=== PATIENT | female | born 1945 | race Caucasian/White ===

== ENCOUNTER → 2016-10-18 13:50 | Outpatient (CLI) | payer MEDICARE, BC ==
[2016-03-11 12:08] VITALS: BMI 26.1
[~2016-10-18 13:50] MED LIST: CITRACAL + D CA1 TAB PO; PROVENTIL/2.5 MG/3 M INH; VITAMIN D31000 UNIT PO; ZOCOR20 MG PO
== END | disposition home or self-care (01) ==
LOC: D.CT 13:50
DX: K63.5 Polyp of colon (principal)

== ENCOUNTER 2017-01-19 08:38 | Day surgery (SDC) | payer MEDICARE, BC ==
[~2017-01-19] VITALS: Ht 147.3 cm; Wt 56.4 kg
--- NOTE | ~2017-01-19 | HP ---
PATIENT: CATA GAMBINO MEDICAL RECORD: [id number] ACCOUNT: [id number] LOCATION:D.MS Fletcher : 49 ADMISSION DATE: 01/19/17 HISTORY AND PHYSICAL EXAMINATION PREOPERATIVE DIAGNOSIS: Numerous colon polyps. HISTORY OF PRESENT ILLNESS: The patient has a tattooed colon polyp in the ascending colon, which is a 45-cm polyp. There is also another polyp at 60 cm, which was a 2 cm polyp. Also, at 20 cm is a 2 cm polyp and also a rectal nodule. I am going to plan for a colonoscopy with argon plasma comic artist. The risks, possible complications and alternatives to the procedure were explained to the patient. She elects to proceed. Discussion specifically included, but was not limited to, bleeding requiring emergency reoperation, infection, endoscopic perforation, as well as the possible need for an open procedure or a colon resection sometime in the future. ALLERGIES: FENTANYL, SULFA, OMNICEF, SPIRIVA. HOME MEDICATIONS: Albuterol, Carafate, Pepcid, and vitamin D3. PAST MEDICAL AND SURGICAL HISTORY: Vertebroplasty, gastroesophageal reflux, osteoporosis, diverticulosis, and COPD. SOCIAL HISTORY: She is a smoker. I have advised her to quit smoking. PHYSICAL EXAMINATION: GENERAL: The patient does not appear acutely ill. She does appear chronically ill. VITAL SIGNS: Reviewed. HEAD: External ears appear normal. EYES: Extraocular movements are intact. NECK: Trachea is midline. CHEST: No intercostal retractions. PULMONARY: Nonlabored, no stridor. ABDOMEN: Nontender. EXTREMITIES: No peripheral cyanosis. IMPRESSION: Complex colon polyps due to their size and location. PLAN: Colonoscopy, polypectomy with the argon plasma comic artist. TRANSINT:[id number] Voice Confirmation ID: [id number] DOCUMENT ID: [id number] HISTORY AND PHYSICAL [id number] CATA GAMBINO ADRIEN MANSFIELD MD CC: BRIAN WALDRON DO, CATY CUELLAR MD and JERRY EDGE [id number] DICTATION DATE: 01/19/171734 POWER GENERATION EQUIPMENT REPAIRER: 01/19/[id number] [place] [address]
--- NOTE | ~2017-01-19 | OP ---
PATIENT NAME: CATA GAMBINO MEDICAL RECORD: [id number] :49 LOCATION:D.MS [id number] ADMISSION DATE: SURGEON: ADRIEN MANSFIELD MD DATE OF OPERATION: 01/19/2017 PREOPERATIVE DIAGNOSIS: Multiple complex colon polyps. POSTOPERATIVE DIAGNOSES: Multiple complex colon polyps with inability to advance the colonoscope proximal to the proximal sigmoid colon. There was a polyp at 20 cm, which was a pedunculated polyp, which was removed utilizing a snare polypectomy technique and then tattooed. PROCEDURES: 1. Flexible sigmoidoscopy. 2. Snare polypectomy. 3. Endoscopic tattooing of the submucosa at the site of the polypectomy. 4. Argon plasma coagulation therapy to the base of the polyp. SURGEON: Adrien Mansfield MD. BUSINESS LINE MANAGER: None. BLOOD LOSS: Minimal. ANESTHESIA: General. COMPLICATIONS: None. The risks, possible complication and alternatives to procedure were explained to the patient. She elects to proceed. The discussion specifically included, but was not limited to, bleeding requiring emergency reoperation, infection, endoscopic perforation. OPERATIVE COURSE: The patient was conveyed to the operating room electively on 01/19/2017. General anesthesia was induced by the anesthesia staff. The patient was placed in the Heredia position. During the procedure, we rolled the patient from side to side also placed her supine in frogleg position in order to try to advance the endoscope. I advanced the colonoscope through the anus. I was unable to advance it proximal to the proximal sigmoid colon. I felt that further attempts may cause an iatrogenic perforation. I withdrew the endoscope to 20 cm. The pedunculated polyp was noted. This was a 2.0 cm polyp. Snare polypectomy was performed utilizing the coagulation and then the cut setting. I then suctioned the polyp and withdrew it through the anus. I then readvanced the endoscope. I advanced it to the polypectomy site. There was some residual polypoid tissue at the base and this was ablated utilizing the argon plasma account solutions analyst with the right colon setting in the forced mode. In order to identify this distal polypectomy site, I performed a submucosal injection of Farrah ink as tattooing this area. This will allow me to know where the distal polypectomy site is. The patient is going to require a segmental colectomy. The colonoscope was removed after the retroflexed view was obtained in the rectum. I then unretroflexed the scope and removed it under direct vision. OPERATIVE REPORT [id number] CATA GAMBINO The patient was conveyed to the recovery room. It was going to be necessary to perform a segmental colectomy on this patient. I will try to do this laparoscopically if I can. I will see her in the office in 2-3 weeks, and we will discuss a colectomy at that time. TRANSINT:[id number] Voice Confirmation ID: [id number] DOCUMENT ID: [id number] ADRIEN MANSFIELD MD CC: BRIAN WALDRON DO, CATY CUELLAR MD and JERRY EDGE [id number] DICTATION DATE: 01/19/17 174 COLORING ROOM WORKER: 01/20/17 0221 [facility] [address] [place] [address]
[2017-01-19] MEDS ORDERED: CARAFATE1 G PO (09:33)
[2017-01-19] MEDS ORDERED: PEPCID20 MG PO (09:33)
[2017-01-19 09:36] VITALS: BP 117/73; BMI 25.1
[2017-01-19 09:45] LABS: HEMATOCRIT 46.6 % (36.0-48.0); HEMOGLOBIN 15.6 g/dL (12-16); MCH 31.8 pg (26.0-34.0); MCHC 33.5 g/dL (31.0-37.0); MCV 94.9 fL (80.0-100.0); MEAN PLATELET VOLUME 11.5 fL (7.4-10.4); RBC 4.91 10x6/uL (4.00-5.40); RDW 13.1 % (11.5-14.5); WBC 5.2 10x3/uL (4.8-10.8)
--- NOTE | 2017-01-19 18:31 | NUR ---
181 REPORT FROM JUAN CARLOS VYAS R.N. PATIENT RESTING WITH EYES CLOSED. AMBULATED IN THE HALLS HYPOACTIVE BOWEL SOUNDS. RESP EVEN AND NOLABORED. ENCOURAGE TO PASS AIR.
--- NOTE | 2017-01-19 19:14 | NUR ---
1540--PT COMPLAINS OF CRAMPS TO ABDOMEN, INSTRUCTED PT TO LAY ON LEFT SIDE WITH KNEES BENT TO CHEST TO HELP EXPEL AIR. WILL CONTINUE TO MONITOR. LEANNA HURT 1700--PT RESTING WITH EYES CLOSED, AWAKENS TO VERBAL STIMULI. PT DENIES PASSING AIR, PT UP TO BATHROOM. LEANNA HURT 1715--PT UNABLE TO PASS AIR WHILE UP TO THE BATHROOM, PT TO BED ON RIGHT SIDE. LEANNA HURT 3585--DR MANSFIELD CALLED AND REPORT OF PT'S DISCOMFORT AND INABILITY TO PASS AIR GIVEN PER SONYA PATE RN, NEW ORDER RECIEVED. LEANNA HURT 199--SIMETHICONE CHEWABLE TABLET GIVEN. LEANNA HURT
--- NOTE | 2017-01-19 19:24 | NUR ---
1899 STILL HAVING ABDOMINAL PAIN 7 LOWER ABDOMEN. NO NAUSEA CALLED DR. MANSFIELD FOR ORDERS AND REPORTED V/DS STABLE AND WALKED PATIENT IN HALLS AND STILL NOT PASSING AIR DID ALICIA. ORDERS RECEIVED.
--- NOTE | 2017-01-19 19:25 | NUR ---
1910 REPORTED TO PATIENT AND FAMILY WILL KEEP OVERNIGHT AND OBSERVE AND HAVE KUB IN THE AM. OFFERED PAIN MEDS BUT REFUSED. TAKING IN LEMON RUBY AND BELCHING.
--- NOTE | 2017-01-19 19:29 | NUR ---
192 OFFERED PAIN MED DENIED NEED FOR PILL FELL THAT THE DILAUDID MADE HER FEEL DIZZY.TOLD PATIENT AND FAMILY WAITING FOR A BED ASSIGNMENT.
--- NOTE | 2017-01-19 19:46 | NUR ---
1945 REPORT TO MAYTE PERALTA LPN. PATIENT TAKING IN LIQUIDS AND STILL NOT PASSING AIR.
[2017-01-19 20:00] VITALS: BP 107/59
[2017-01-19 20:28] VITALS: BP 107/59; Ht 147.3 cm; Wt 56.4 kg
--- NOTE | 2017-01-19 23:08 | NUR ---
REC'D PATIENT FROM OUTPATIENT SURGERY. ALERT AND ORIENTED X4. REPORTS PAIN OF 7/10. DENIED PAIN MEDICATION. STATES "I WANT TO SEE IF I CAN GET RID OF SOME OF THE AIR IN MY STOMACH" NO DISTRESS NOTED. DENIES FURTHER NEEDS AT THIS TIME. INSTRUCTED TO CALL IF NEEDS ANYTHING. BED LOW, LOCKED, CALL LIGHT IN REACH.
[2017-01-20] VITALS: BP 104/67; BP 119/84
--- NOTE | 2017-01-20 01:47 | NUR ---
PATIENT IS RESTING IN BED COMFORTABLY. NO DISTRESS NOTED. DENIED PAIN AT THIS TIME. DENIED FURTHER NEEDS AT THIS TIME. INSTRUCTED TO CALL IF NEEDED ANYTHING. BED LOW, LOCKED, CALL LIGHT IN REACH.
[2017-01-20 04:00] VITALS: BP 86/57
[2017-01-20 08:09] VITALS: BP 108/63
--- NOTE | 2017-01-20 08:10 | NUR ---
AWAKE AND ALERT AT THIS TIME. AMBULATORY PER SELF. IV SITE PATENT WITH NO S/S OF INFILATRATION PRESENT. PT C/O GAS, "THAT WON'T ALL COME OUT AND SAYS HER BLADDER IS HANGING SOME." EXPLAINED TO PT THAT GAS WILL IMPROVE WITH AMBULATION AND ASKED HER IF BLADDER PROLAPSE IS NEW AND SHE SAID IT HAS HAPPENED BEFORE. POSSIBLE D/C TODAY. TOLERATING CLEAR LIQUIDS. PROVIDED WITH FRESH ICE WATER. CALL LIGHT IN REACH. WILL CONTINUE WITH PLAN OF CARE.
[2017-01-20 10:57] VITALS: BP 110/62
--- NOTE | 2017-01-20 11:35 | NUR ---
DISCHARGE PAPERWORK REVIEWED AT THIS TIME AND IV D/C WITH CATH TIP INTACT. DENIES QUESTIONS OR CONCERNS RELATED TO DISCHARGE. WILL D/C HOME WITH FAMILY.
== END 2017-01-20 11:40 | disposition home or self-care (01) ==
LOC: D.MS 08:38 → D.OPS 08:38 → D.PAN 10:15 → D.MS 17:48 → D.OPS 01-20 11:40
PROVIDERS: Anesthesiology
DX: D12.5 Benign neoplasm of sigmoid colon (principal); K21.9 Gastro-esophageal reflux disease without esophagitis; K57.30 Diverticulosis of large intestine without perforation or abscess without bleeding; F17.200 Nicotine dependence, unspecified, uncomplicated; J44.9 Chronic obstructive pulmonary disease, unspecified; Z79.899 Other long term (current) drug therapy; M81.0 Age-related osteoporosis without current pathological fracture; Z88.2 Allergy status to sulfonamides; Z88.8 Allergy status to other drugs, medicaments and biological substances

== ENCOUNTER → 2017-03-07 13:55 | Outpatient (CLI) | payer MEDICARE, BC ==
[2017-01-19 20:28] VITALS: BMI 25.9
[~2017-03-07 13:55] MED LIST changes: +CARAFATE1 G PO; +PEPCID20 MG PO
== END | disposition home or self-care (01) ==
LOC: D.MAMMO 09:15
DX: Z12.31 Encounter for screening mammogram for malignant neoplasm of breast (principal)

== ENCOUNTER → 2017-03-17 15:24 | Outpatient (CLI) | payer MEDICARE, BC ==
[2017-01-19 20:28] VITALS: BMI 25.9
[2017-03-17 16:07] LABS: INR 1.07 (0.85-1.17); PROTIME 13.7 SECONDS (11.6-15.0)
[2017-03-17 17:01] LABS: ERYTHROCYTE SEDIMENTATION RATE 10 mm/hr (0-30)
== END | disposition home or self-care (01) ==
LOC: D.LAB 15:24 → D.CT 16:00
PROVIDERS: Internal Medicine Pulmonary Disease
DX: R04.2 Hemoptysis (principal)

== ENCOUNTER 2017-04-22 06:47 | Inpatient (IN) | payer MEDICARE, BC ==
[2017-04-21 08:56] LABS: HEMATOCRIT 42.7 % (36.0-48.0); HEMOGLOBIN 14.1 g/dL (12-16); MCH 31.5 pg (26.0-34.0); MCV 95.5 fL (80.0-100.0); MEAN PLATELET VOLUME 10.9 fL (7.4-10.4); RBC 4.47 10x6/uL (4.00-5.40); RDW 13.6 % (11.5-14.5); WBC 4.1 10x3/uL (4.8-10.8)
[2017-04-21 09:05] LABS: CALC OSMOLALITY 278 mosm/kg (275-300); CALCIUM 9.3 mg/dL (8.5-10.1); CARBON DIOXIDE 29.9 mmol/L (21.0-32.0); CHLORIDE - SERUM 103 mmol/L (98-107); CREATININE - SERUM 0.8 mg/dL (0.6-1.3); GLUCOSE 92 mg/dL (74-106); POTASSIUM - SERUM 4.1 mmol/L (3.5-5.1); SODIUM 140 mmol/L (136-145); UREA NITROGEN 12 mg/dL (7-18); eGFR NON AFRICAN AMERICAN 75 mL/min (90-120)
[2017-04-22] VITALS (7 sets, daily range): BP systolic 104–126; BP diastolic 67–81; BMI 24.0; BMI 27.2
[~2017-04-22] VITALS: Ht 147.3 cm; Wt 59.0 kg
--- NOTE | ~2017-04-22 | HP ---
PATIENT: CATA GAMBINO MEDICAL RECORD: [id number] ACCOUNT: [id number] LOCATION:D.MS [id number] : 49 ADMISSION DATE: 04/22/17 HISTORY AND PHYSICAL EXAMINATION CHIEF COMPLAINT: Polyps. HISTORY OF PRESENT ILLNESS: The patient has endoscopically unresectable colon polyps. She was found to have a sessile nonbleeding polyp of benign appearance ranging from 4-5 cm in the proximal ascending colon. This was tattooed. There was a 2 sessile nonbleeding polyp of benign appearance, ranging from 2 cm to 2 cm in the distal ascending colon at 60 cm. These were tattooed as well. There is a single 2 cm nonbleeding polyp of benign appearance found on mid sigmoid colon at 20 cm. It was sent for histologic examination. Cold biopsy forceps were performed here and the lesion was tattooed. These polyps were endoscopically unresectable. The patient is to undergo a subtotal colectomy. The risks, possible complications and alternatives to procedure were explained to the patient. She elects to proceed. The discussion specifically included, but was not limited to, bleeding requiring emergency reoperation, infection, intestinal injury, anastomotic leakage and ileostomy formation. TRANSINT:[id number] Voice Confirmation ID: [id number] DOCUMENT ID: [id number] ADRIEN MANSFIELD MD CC: BRIAN WALDRON DO and JERRY EDGE MD [id number] DICTATION DATE: 04/22/171655 LOADING DOCK HELPER: 04/22/17 1819 ADM [id number] [place] [address]
--- NOTE | 2017-04-22 18:40 | NUR ---
CONSULTED DR MANSFIELD REGARDING HYPOTENSION AND DECREASED URINE OUTPUT. VERBAL ORDERS RECEIVED TO ADMIT PATIENT TO ICU AND TO ORDER A CBC, BMP.
--- NOTE | 2017-04-22 18:40 | NUR ---
CAILIN STEPHEN APPLIED AT 1720
[2017-04-22 18:48] LABS: BASOPHILS 0.1 % (0-2); EOSINOPHILS 0.1 % (0-7); LYMPHOCYTES 11.1 % (15-50); MCH 31.2 pg (26.0-34.0); MCHC 32.2 g/dL (31.0-37.0); MCV 97.1 fL (80.0-100.0); MEAN PLATELET VOLUME 10.9 fL (7.4-10.4); MONOCYTES 5.6 % (2-11); NEUTROPHILS 83.1 % (40-80); RDW 13.6 % (11.5-14.5)
[2017-04-22 19:01] LABS: CALCIUM 7.1 mg/dL (8.5-10.1); CREATININE - SERUM 0.9 mg/dL (0.6-1.3); POTASSIUM - SERUM 3.9 mmol/L (3.5-5.1)
[2017-04-22 19:03] LABS: CARBON DIOXIDE 21.9 mmol/L (21.0-32.0)
--- NOTE | 2017-04-22 19:05 | NUR ---
PT ARRIVED TO UNIT VIA BED AND TRANSFERED SAFELY TO ICU BED. UPON ARRIVAL PT HAD NO PERSONAL BELONGINGS WITH HER. VS FOLLOWS : BP 107/67, HR 83, RR 14, SPO2 97% ON 2LNC, AND TEMP 97.3F. RECIEVED NEW ORDERS FROM DR MANSFIELD VIA EMAR, WILL INITIATE ORDERS. ASSESSMENT COMPLETED ATT, PLEASE SEE FLOW SHEETS FOR DETAILS. EPIDURAL IN PLACE, SITE CDI, DRESSINGS ON ABD CDI, DRAIN WITH BRIGHT RED BLOOD. VSS, WILL CPOC.
[2017-04-22 19:11] LABS: HEMATOCRIT 33.9 % (36.0-48.0); HEMOGLOBIN 10.9 g/dL (12-16); PLATELET COUNT 135 10x3/uL (130-400); RBC 3.49 10x6/uL (4.00-5.40); WBC 6.9 10x3/uL (4.8-10.8)
--- NOTE | 2017-04-22 19:30 | NUR ---
DR MANSFIELD ON UNIT TO CHECK ON PT. STATED HE WANTED DRAIN EMPTIED REGULARLY AND KEPT COMPRESSED. ALSO STATED THAT SHE COULD HAVE ICE CHIPS. HE ALSO WANTS AN H&H AT APPROX 2200.
--- NOTE | 2017-04-22 21:00 | NUR ---
C/O FULL BLADDER, NEVAREZ NOT DRAINING, PUSHED AND PULLED SLIGHTLY ON CATHETER, NO DRAINAGE NOTED. PT CAN FEEL LEAKAGE AROUND CATH. WILL MONITOR CLOSELY AND SEE OF ANY OTHER INTERVENTION NEEDS DONE IF WILL CONTINUE TO NOT DRAIN. VSS, BED LOW AND LOCKED, CALL LIGHT IN REACH. WILL CPOC.
[2017-04-22 22:34] LABS: HEMATOCRIT 35.3 % (36.0-48.0); HEMOGLOBIN 11.2 g/dL (12-16)
--- NOTE | 2017-04-22 23:00 | NUR ---
STILL C\O BLADDER FULLNESS, BLADDER SCAN REVEALED 777ML OF URINE IN BLADDER. FLUSHED WITH 10 ML SALINE FLUSH, CATHETER STARTED WORKING AND DRAINED APPROX THE SCANNED AMOUNT, POSSIBLE MORE. CONTINUE TO DRAIN. WILL CONTINUE TO MONITOR THIS. REASSESSMENT COMPLETED ATT, PLEASE SEE FLOW SHEETS FOR DETAILS. EDY DRAIN COMPRESSED AND DRAINING SMALLER AMOUNTS OF BLOODY DRAINAGE, KEEPING COMPRESSED. VSS ATT, BED LOW AND LOCKED, CALL LIGHT IN REACH. WILL CPOC.
[2017-04-23] VITALS (24 sets, daily range): BP systolic 85–123; BP diastolic 49–71; Ht 147.3 cm; Wt 59.0 kg
--- NOTE | 2017-04-23 03:00 | NUR ---
REASSESSMENT COMPLETE, PLEASE SEE FLOW SHEETS FOR DETAILS. TURNS SELF IN BED. DENIES PAIN/NEEDS ATT. BED LOW AND LOCKED, CALL LIGHT IN REACH. VSS, WILL CPOC.
--- NOTE | 2017-04-23 05:00 | NUR ---
RESTING, NO S&S OF ACUTE DISTRESS NOTED. BED LOW AND LOCKED, CALL LIGHT IN REACH. VSS, WILL CPOC.
--- NOTE | 2017-04-23 10:00 | NUR ---
DR. WILKERSON NOTIFIED OF BLOOD PRESSURE BELOW 90 SYS. EPIDURAL REDUCED TO 5 MG HOURS CONTINOUS AND EMPLOYMENT COORDINATOR TO [address] WILKERSON. PATIENT HAS SOME OFF AND ON NUMBNESS IN HANDS. REPOSITIONS SELF IN BED WITHOUT PAIN. ABD DRESSING DRY AND INTACT. EDY DRAINED EMPTIED TWICE. MONITOR SR. IV RIGHT FOREARM WITHOUT REDNESS OR SWELLING INFUSING WITH NS AT 1OO ML HOUR. NEVAREZ CATH PATENT DRAINING PALE YELLOW URINE. DENIES ANY PAIN. MONITOR SR. RESP DEEP AND REGULAR NO DISTRESS NOTED.
--- NOTE | 2017-04-23 10:09 | NUR ---
SALINE BOLUS GIVEN PER DR. WILKERSON ORDERED FOR BLOOD PRESSURE. URINE OUTPUT GREAT AFTER BUMEX. NO DISTRESS. SCD ON LOWER LEGS. SKIN WARM AND DRY.
--- NOTE | 2017-04-23 14:52 | NUR ---
UP IN CHAIR AT BEDSIDE WITH PT. TOLERATED FAIR. TAKING ICE CHIPS. DRESSING ON BACK DRY AND INTACT DENIES ANY PAIN.
--- NOTE | 2017-04-23 19:00 | NUR ---
REPORT RECIEVED, INITIAL SHIFT ASSESSMENT COMPLETE, PLEASE SEE FLOW SHEETS FOR DETAILS. GOT UP TO BEDSIDE CAMODE, 70ML LIGHT YELLOW URINE NOTED. EPIDURAL IN PLACE AND DRESSING CDI. C/O SLIGHT NAUSEA. DENIES SOB OR DIZZINESS. C/O SLIGHT DISCOMFORT AROUND EDY DRAIN SITE. ALL DRESSING CDI. VSS, BED LOW AND LOCKED, CALL LIGHT IN REACH. WILL CPOC.
--- NOTE | 2017-04-23 21:00 | NUR ---
UP TO BEDSIDE CAMODE, 300ML LIGHT YELLOW URINE OUT. AMBULATES SELF. TOLERATED WELL. BED LOW AND LOCKED, CALL LIGHT IN REACH. VSS, WILL CPOC.
--- NOTE | 2017-04-23 23:00 | NUR ---
REASSESSMENT COMPLETE, PLEASE SEE FLOW SHEETS FOR DETAILS. TURNS SELF, DENIES PAIN. VSS, BED LOW AND LOCKED, CALL LIGHT IN REACH. EDY CHECKED AND COMPRESSING WITH DRESSING CDI. EPIDURAL SITE CHECKED AND DRESSING CDI. WILL CPOC.
[2017-04-24] VITALS (24 sets, daily range): BP systolic 100–139; BP diastolic 7–86
--- NOTE | 2017-04-24 01:00 | NUR ---
UP TO BEDSIDE CAMODE, 250ML LIGHT YELLOW URINE NOTED. AMBULATED SELF AND TOLERATED WELL. BED LOW AND LOCKED, CALL LIGHT IN REACH. VSS, WILL CPOC.
--- NOTE | 2017-04-24 03:00 | NUR ---
REASSESSMENT COMPLETE, PLEASE SEE FLOW SHEETS FOR DETAILS. TURNS SELF. VSS. DENIES PAIN/NEEDS ATT. BED LOW AND LOCKED, CALL LIGHT IN REACH. WILL CPOC.
[2017-04-24 04:12] LABS: BASOPHILS 0.1 % (0-2); EOSINOPHILS 0 % (0-7); HEMATOCRIT 36.2 % (36.0-48.0); HEMOGLOBIN 11.5 g/dL (12-16); IMMATURE GRANULOCYTES 0.3 % (0-5); LYMPHOCYTES 10.6 % (15-50); MCH 30.7 pg (26.0-34.0); MCHC 31.8 g/dL (31.0-37.0); MCV 96.5 fL (80.0-100.0); MEAN PLATELET VOLUME 11.1 fL (7.4-10.4); MONOCYTES 8.3 % (2-11); NEUTROPHILS 80.7 % (40-80); PLATELET COUNT 152 10x3/uL (130-400); RBC 3.75 10x6/uL (4.00-5.40); RDW 13.8 % (11.5-14.5)
[2017-04-24 04:20] LABS: WBC 9.4 10x3/uL (4.8-10.8)
[2017-04-24 04:27] LABS: CALC OSMOLALITY 276 mosm/kg (275-300); CALCIUM 7.8 mg/dL (8.5-10.1); CHLORIDE - SERUM 106 mmol/L (98-107); CREATININE - SERUM 0.8 mg/dL (0.6-1.3); GLUCOSE 80 mg/dL (74-106); POTASSIUM - SERUM 3.6 mmol/L (3.5-5.1); SODIUM 140 mmol/L (136-145); eGFR NON AFRICAN AMERICAN 75 mL/min (90-120)
[2017-04-24 04:35] LABS: UREA NITROGEN 11 mg/dL (7-18)
--- NOTE | 2017-04-24 05:00 | NUR ---
RESTING, NO S&S OF ACUTE DISTRESS NOTED. BED LOW AND LOCKED, CALL LIGHT IN REACH. VSS, WILL CPOC.
--- NOTE | 2017-04-24 08:33 | NUR ---
AWAKE UP TO BSC. DOES HAVE INCREASE RIGHT ABD PAIN AFTERWARDS. THIRD SHIFT LIEUTENANT ON EPIDURAL USED. EPIDURAL DRESSING DRY AND INTACT. IV RIGHT FOREARM WITHOUT REDNESS OR SWELLING INFUSING WITH NS AT 100 ML HOUR. ABD DRESSINGS DRY AND INTACT. MONITOR SR. NO RESP DISTRESS. ICE CHIPS PROVIDED.
--- NOTE | 2017-04-24 14:40 | NUR ---
COMPLETE BED BATH GIVEN WITH PARTIAL LINEN CHANGE. EPIDURAL DRESSING DRY AND INTACT. SOME RIGHT ABD PAIN WITH MOVEMENT. RELIEVED AFTER SHE IS STILL FOR A FEW MINTUES. IV PATENT WITHOUT REDNESS OR SWELLING INFUSING WITH NS AT 100 ML HOUR. UP TO BSC SEVERAL TIMES TODAY. NO PAIN WHEN LAYING IN BED.
--- NOTE | 2017-04-24 18:31 | NUR ---
EYES CLOSED. RESP DEEP AND REGULAR NO DISTRESS NOTED
--- NOTE | 2017-04-24 19:15 | NUR ---
ASSESSMENT COMPLETE. S1S2. NSR SHOWING ON MONITOR. AAO. EPIDURAL NOTED TO BACK; DRESSING CDI. EDY DRAIN TO RIGHT ABD; BLOODY DRAINAGE; DRESSING CDI. RADIAL AND PEDAL PULSES PALPATED. PERRLA. NPO WITH ICECHIPS. R/L FOREARM PIV; BOTH PATENT. SEE IV FLOW SHEET. LEFT PIV SALINE LOCKED. VSS. NO DISTRESS NOTED. SCD IN PLACE.
--- NOTE | 2017-04-24 19:30 | NUR ---
PT UP TO BEDSIDE COMMODE. STEADY GAIT. MINIMAL ASSISTANCE REQUIRED. REMAINED AT BEDSIDE. 75ML; CLEAR YELLOW URINE.
--- NOTE | 2017-04-24 21:41 | NUR ---
NO VISITORS DURING VISITATION. PT UP TO BEDSIDE COMMODE. GAIT STEADY. SLIGHT SOB NOTED UPON RETURNING TO BED. 75ML OF CLEAR YELLOW URINE. O2 SAT 95%; PLACED ON 2L NC FOR COMFORT.
--- NOTE | 2017-04-24 23:33 | NUR ---
PT RESTING; EYES CLOSED. VSS. NO DISTRESS NOTED. WILL CONTINUE TO MONITOR.
--- NOTE | 2017-04-25 01:20 | NUR ---
PT UP TO BEDSIDE COMMODE. 300 UOP; CLEAR YELLOW URINE.
[2017-04-25 03:00] VITALS: BP 130/74
--- NOTE | 2017-04-25 03:29 | NUR ---
PT DENIES ANY NEEDS AT THIS TIME. CALL LIGHT IN REACH. VSS. NO DISTRESS NOTED. WILL CONTINUE TO MONITOR.
[2017-04-25 07:00] VITALS: BP 113/62; BP 136/73
--- NOTE | 2017-04-25 07:00 | NUR ---
REC'D REPORT AND RESUMED CARE, AAO, O2 VIA RA, SAT 98%, OTHER VSS, DENIES PAIN, EPIDURAL IN USE, DRESSING CDI, RIGHT ABDOMEN WITH EDY DRAIN, HAS BLOODY DRAINAGE TO COMPRESSED BULB, ABDOMINAL DRESSING XE CDI, ASSESSMENT COMPLETED PER FLOWSHEET, OOB TO BEDSIDE COMMODE, 400 CC YELLOW DRAINAGE TO [place], TRANSFER TO CHAIR WITH STANDBY ASSIST, CALL LIGHT IN REACH, DENIES PAIN OR ANY NEEDS A THIS TIME
[2017-04-25 07:38] LABS: BASOPHILS 0.2 % (0-2); EOSINOPHILS 0.6 % (0-7); HEMATOCRIT 34.7 % (36.0-48.0); HEMOGLOBIN 11.3 g/dL (12-16); IMMATURE GRANULOCYTES 0.2 % (0-5); LYMPHOCYTES 11.3 % (15-50); MCH 31.2 pg (26.0-34.0); MCHC 32.6 g/dL (31.0-37.0); MCV 95.9 fL (80.0-100.0); MONOCYTES 7.7 % (2-11); PLATELET COUNT 156 10x3/uL (130-400); RBC 3.62 10x6/uL (4.00-5.40); RDW 13.9 % (11.5-14.5); WBC 8.5 10x3/uL (4.8-10.8)
[2017-04-25 07:55] LABS: CALC OSMOLALITY 276 mosm/kg (275-300); CALCIUM 8.6 mg/dL (8.5-10.1); CARBON DIOXIDE 20.2 mmol/L (21.0-32.0); CHLORIDE - SERUM 107 mmol/L (98-107); CREATININE - SERUM 0.6 mg/dL (0.6-1.3); GLUCOSE 74 mg/dL (74-106); MAGNESIUM - SERUM 1.7 mg/dL (1.8-2.4); POTASSIUM - SERUM 3.3 mmol/L (3.5-5.1); SODIUM 140 mmol/L (136-145); UREA NITROGEN 10 mg/dL (7-18); eGFR NON AFRICAN AMERICAN > 90 mL/min (90-120)
[2017-04-25 07:56] LABS: PHOSPHOROUS 1.5 mg/dL (2.5-4.9)
--- NOTE | 2017-04-25 09:00 | NUR ---
AM MEDS GIVEN WITHOUT DIFFICULTY,
--- NOTE | 2017-04-25 10:01 | NUR ---
Nutrition follow-up: Pt remains NPO with ice chips only; waiting of return of bowel function. Labs reivewed Wt: 130# Will need nutrition support started within 24-48 hours if diet unable to start. RDN following.
[2017-04-25 11:00] VITALS: BP 134/82
--- NOTE | 2017-04-25 11:00 | NUR ---
PC TO ANA CARRILLO PILL OT EPIDURAL, START DILAUDID CREW BOSS AT 0.2 MG Q 10 MIN
--- NOTE | 2017-04-25 11:04 | NUR ---
* Is the patient Alert and Oriented? Yes 0 * How many steps to enter\exit or inside your home? 6 0 * PCP Dr. Aguila 0 * Pharmacy [facility] on [address] * Preadmission Environment Home with Family 0 * ADLs Independent 0 * Equipment Nebulizer 0 * List name and contact numbers for known caregivers / representatives who currently or will assist patient after discharge: Sister Dilshad Guerrier [phone] or [phone] 0 * Additional services required to return to the preadmission environment? No 0 * Can the patient safely return to the preadmission environment? Yes 0 * Has this patient been hospitalized within the prior 30 days at any hospital? No Patient Name: CATA GAMBINO Admission Status: Elective Accout number: [id number] Admission Date: 04-22-2017 : 1945 Admission Diagnosis: Attending: ADRIEN MANSFIELD Current LOS: 3 Anticipated DC Date: 04-27-2017 Planned Disposition: Home Primary Insurance: MEDICARE A & B Discharge Planning Comments: CM met with patient to assess dc plans/needs. Patient states she lives at home with her . She reports is independent with all ADL's & IADL's. She states her has had a stroke & she is his primary caregiver. She states he requires assistance with meal preparation & anything involving fine motor skills. She has not had home health services in the past but is agreeable to referral should she have any kind of wound care or physical therapy needs. CM will follow & assist as needed. Locomotive Oiler: Deepali Fletcher
--- NOTE | 2017-04-25 11:12 | NUR ---
PC TO DR GUNTER, NOTIFIED OF ORDER TO DC ACCOUNTING ASSOCIATE
--- NOTE | 2017-04-25 11:50 | NUR ---
DILAUDID [employer] ARCHITECT INITITATED 0.[address] MANSFIELD, EDUCATED ON PAIN BUTTON, VERBALIZED UNDERSTANDING
--- NOTE | 2017-04-25 12:10 | NUR ---
FAMILY AT BEDSIDE, STATUS UPDATED, AWAITING ROOM ASSIGNMENT FOR TRANSFER OUT OF ICU. NO OTHER NEEDS AT THIS TIME
--- NOTE | 2017-04-25 13:30 | NUR ---
DR LÓPEZ AND DR GUNTER AT BEDSIDE, EPIDURAL DC'D WITHOUT DIFFICULTY
[2017-04-25 15:00] VITALS: BP 143/89
--- NOTE | 2017-04-25 15:00 | NUR ---
ASSESSMENT COMPLETE, NO ACUTE CHANGES, VSS, DENIES PAIN AT THIS TIME, REPOSITIONED UP AND TO RIGHT SIDE WITH PILLOW PROPPED TO BACK, NO VISITORS AT THIS TIME
--- NOTE | 2017-04-25 17:20 | NUR ---
TO ROOM 2238 FROM ICU VIA WHEELCHAIR.PT WITHOUT DISTRESS.DRESSING X5 TO ABDOMEN CLEAN,DRY AND INTACT.SKIN TO BUTTOCKS WITHOUT BREAKDOWN.SCD'S IN PLACE AND TURNED ON.PT NPO EXCEPT ICE CHIPS.ORIENTATION TO ROOM AND CALL LIGHT PLACED IN REACH.
--- NOTE | 2017-04-25 17:20 | NUR ---
TRANSFERRED TO 2237 VIA WHEELCHAIR, AAO, TRANSFERRED WITHOUT DIFFICULTY, REPOSITIONED UP IN BED, PRIMARY NURSE CALLED TO BEDSIDE
--- NOTE | 2017-04-25 19:43 | NUR ---
PATIENT RESTIING IN BED AND DENIES NEEDS AT THIS TIME. PATIENT STATED 6/10 PAIN. I EDUCATED THE PATIENT ON THE USE OF HER TWISTHAND PUMP FOR PAIN CONTROL. PATIENT DENIES OTHER NEEDS AT THIS TIME. BED IN LOWEST POSITION AND CALL LIGHT WITHIN REACH. ENCOURAGED THE PATIENT TO CALL IF SHE HAS NEEDS.
[2017-04-25 20:00] VITALS: BP 171/97
[2017-04-26] VITALS: BP 153/72
[2017-04-26 03:59] VITALS: BP 147/84
--- NOTE | 2017-04-26 07:29 | NUR ---
PT SITTING UP IN BED SLEEPING NO S/S DISTRESS NOTED RR EVEN AND UNLABORED WILL CONT TO MONITOR
[2017-04-26 09:24] VITALS: BP 162/90
--- NOTE | 2017-04-26 13:38 | NUR ---
PT SITTING UP IN BED WITH FAMILY MEMBER AT BEDSIDE. ALL TUBING FOR FLUIDS AND WEIGHT TESTER WERE CHANGED DATED AND INITIALED SWAB CAPS IN USE. PT DENIES ANY NEEDS OR CONCERNS OTHER THAN WANT FOR A DRINK. PT IS NPO WITH THE EXCEPTION OF ICE CHIPS, GIVEN ICE CHIPS. WILL ASK SURGERY WHEN ROUND ABOUT ADVANCING DIET SINCE PT HAS HAD A STOOL EARLY THIS AM.
[2017-04-26 14:02] VITALS: BP 151/88
--- NOTE | 2017-04-26 15:43 | NUR ---
CALLED TO PT ROOM PT PIV IN LEFT FA HAS DISLODGED AND BLEEDING. DC WITH CATH TIP INTACT. PT HAS PIV IN R FA ATTATCHED IV TUBING TO THAT IV AND IMMEDIATELY STARTED TO LEAK FROM INSERTION SITE. DC WITH CATH TIP INTACT. RESITED TO LEFT WRIST 20G X2 STICKS. PT TOLERATED WELL. IV IS SIGNED AND DATED AND SECURED TO PT. CDI . WILL CONT TO MONITOR
[2017-04-26 16:20] VITALS: BP 160/89
--- NOTE | 2017-04-26 19:30 | NUR ---
PATIENT RESTING IN BED AND DENIES NEEDS AT THIS TIME. BED IN LOWEST POSITION AND CALL LIGHT WITHIN REACH. ENCOURAGED THE PATIENT TO CALL IF SHE HAS NEEDS.
[2017-04-26 20:00] VITALS: BP 122/84
[2017-04-27 04:00] VITALS: BP 140/78
--- NOTE | 2017-04-27 07:55 | NUR ---
PT AOX4 RESP EVEN AND NONLABORED PT DENIES NEEDS AT THIS TIME IV TO LEFT FOREARM PATENT AND INTACT AT THIS TIME SRX2 BED AT LOWEST SETTING CALL LIGHT WITHIN REACH WILL CONTINUE TO MONITOR
[2017-04-27 08:21] VITALS: BP 147/86
[2017-04-27 12:00] VITALS: BP 140/88
[2017-04-27 16:31] VITALS: BP 137/85
[2017-04-27 20:00] VITALS: BP 129/84
--- NOTE | 2017-04-27 21:22 | NUR ---
ALERT,ORIENTED. UP AD JOYCE IN ROOM. IV TO LEFT FOREARM WITHOUT REDNESS OR EDEMA NOTED. NO COMPLAINTS VOICED. CL IN REACH.
--- NOTE | 2017-04-28 01:51 | NUR ---
AWAKE WITH NO COMPLAINTS. CL IN REACH.
[2017-04-28 04:00] VITALS: BP 133/80
--- NOTE | 2017-04-28 06:26 | NUR ---
AWAKE,ALERT.NO COMPLAINTS VOICED. CL IN [facility].
[2017-04-28 08:07] VITALS: BP 112/64
[2017-04-28 11:59] VITALS: BP 121/77
[2017-04-28 15:04] VITALS: BP 103/73
[2017-04-28 20:00] VITALS: BP 136/74
[2017-04-29] VITALS: BP 142/77
[2017-04-29 04:00] VITALS: BP 120/66
[2017-04-29 08:05] VITALS: BP 108/71
--- NOTE | 2017-04-29 10:36 | NUR ---
PT RESTING COMFORTABLY IN BED. RATES PAIN 1/10 ON ABDOMEN. SHREDDED FILLER CUTTER OPERATOR BUTTON WITHIN REACH. PT HAS NOT BEEN USING PAIN MED SO FAR TODAY. DENIES OTHER NEEDS AT THIS TIME.
[2017-04-29] MEDS ORDERED: HYDROCODON-ACE1 EAC7 PO (12:14)
--- NOTE | 2017-04-29 12:44 | NUR ---
CM REASSESSMENT NOTE: PATIENT IS DISCHARGING HOME TODAY/SISTER DRIVING HER. PATIENT REFUSED HOME HEALTH AND HAD NO OTHER NEEDS FOR DISCHARGE.
--- NOTE | 2017-04-29 13:01 | NUR ---
DISCHARGE INSTRUCTIONS GIVEN. PT NOTIFIED THAT SHE NEED TO MAKE FOLLOW UP APPOINTMENT WITH DR. MANSFIELD IN 2-3 WEEKS. LEFT WRIST PERIPHERAL IV REVOMED WITH CATHETER INTACT.
--- NOTE | 2017-04-29 13:17 | NUR ---
PT DISCHARGED. WHEELED OUT TO VEHICLE. SHE WAS PICKED UP BY HER DAUGHTER. PERSONAL BELONGINGS SENT HOME WITH PATIENT.
== END 2017-04-29 13:18 | disposition home or self-care (01) | DRG 331 ==
LOC: D.SDCHOLD 06:47 → D.MS 06:47 → D.ICU 06:47 → D.SDCHOLD 11:45 → D.MS 18:33 → D.ICU 19:00 → D.MS 04-25 17:07
PROVIDERS: Anesthesiology; Surgery; ADMIT Surgery
PROC: 0DBE0ZZ Excision of Large Intestine, Open Approach (ICD-10-PCS; principal; 2017-04-22 12:00)
DX: D12.2 Benign neoplasm of ascending colon (principal); I95.81 Postprocedural hypotension

== ENCOUNTER 2017-05-06 11:22 | Emergency (ER) | payer MEDICARE, BC ==
[2017-04-23 09:42] VITALS: BMI 27.1
[~2017-05-06 11:22] MED LIST changes: +HYDROCODON-ACE1 EAC7 PO
[2017-05-06 14:09] LABS: BASOPHILS 0.2 % (0-2); EOSINOPHILS 0.4 % (0-7); HEMATOCRIT 34.1 % (36.0-48.0); HEMOGLOBIN 11.3 g/dL (12-16); IMMATURE GRANULOCYTES 0.2 % (0-5); LYMPHOCYTES 10.7 % (15-50); MCHC 33.1 g/dL (31.0-37.0); MCV 93.7 fL (80.0-100.0); MEAN PLATELET VOLUME 9.4 fL (7.4-10.4); MONOCYTES 8.8 % (2-11); NEUTROPHILS 79.7 % (40-80); RBC 3.64 10x6/uL (4.00-5.40); RDW 13.6 % (11.5-14.5); WBC 11.6 10x3/uL (4.8-10.8)
[2017-05-06 14:18] LABS: PLATELET COUNT 347 10x3/uL (130-400)
[2017-05-06 14:42] LABS: ALBUMIN 2.4 g/dL (3.4-5.0); ALKALINE PHOSPHATASE 80 U/L (46-116); ALT (SGPT) 32 U/L (10-68); BILIRUBIN - TOTAL 0.24 mg/dL (0.2-1.3); CALC OSMOLALITY 274 mosm/kg (275-300); CALCIUM 10.2 mg/dL (8.5-10.1); CARBON DIOXIDE 33.4 mmol/L (21.0-32.0); CHLORIDE - SERUM 98 mmol/L (98-107); CREATININE - SERUM 0.7 mg/dL (0.6-1.3); GLUCOSE 101 mg/dL (74-106); PROTEIN - SERUM 6.3 g/dL (6.4-8.2); SODIUM 138 mmol/L (136-145); UREA NITROGEN 10 mg/dL (7-18); eGFR NON AFRICAN AMERICAN 88 mL/min (90-120)
[2017-05-06 14:53] LABS: POTASSIUM - SERUM 2.9 mmol/L (3.5-5.1)
[2017-05-06 16:53] LABS: APPEARANCE HAZY (CLEAR); COLOR YELLOW (YELLOW)
[2017-05-06 16:54] LABS: BACTERIA MODERATE /hpf (NONE SEEN); BILIRUBIN NEGATIVE (NEGATIVE); EPITHELIAL CELLS 0-5 /hpf (0-5); GLUCOSE NEGATIVE (NEGATIVE); KETONE NEGATIVE (NEGATIVE); LEUKOCYTE ESTERASE TRACE (NEGATIVE); NITRITE NEGATIVE (NEGATIVE); PROTEIN NEGATIVE (NEGATIVE); RED CELLS - URINE 0-5 /hpf (0-5); UROBILINOGEN NORMAL (NORMAL)
== END 2017-05-06 17:15 | disposition home or self-care (01) ==
LOC: D.ER 11:22
PROVIDERS: Physician Assistant
DX: Z98.890 Other specified postprocedural states (principal); T81.4XXA Infection following a procedure, initial encounter; L02.91 Cutaneous abscess, unspecified; E87.6 Hypokalemia

== ENCOUNTER 2017-06-14 06:23 | Day surgery (SDC) | payer MEDICARE, BC ==
[2017-06-13 13:57] LABS: BASOPHILS 0.1 % (0-2); EOSINOPHILS 0.1 % (0-7); HEMATOCRIT 37.2 % (36.0-48.0); HEMOGLOBIN 12.2 g/dL (12-16); IMMATURE GRANULOCYTES 0.2 % (0-5); MCH 30.7 pg (26.0-34.0); MCHC 32.8 g/dL (31.0-37.0); MCV 93.5 fL (80.0-100.0); MEAN PLATELET VOLUME 10.3 fL (7.4-10.4); MONOCYTES 7.9 % (2-11); NEUTROPHILS 76.7 % (40-80); RBC 3.98 10x6/uL (4.00-5.40); RDW 13.6 % (11.5-14.5); WBC 9.2 10x3/uL (4.8-10.8)
[2017-06-13 14:10] LABS: PLATELET COUNT 228 10x3/uL (130-400)
[2017-06-13 14:48] LABS: APPEARANCE HAZY (CLEAR); BACTERIA MODERATE /hpf (NONE SEEN); BILIRUBIN NEGATIVE (NEGATIVE); COLOR DK YELLOW (YELLOW); GLUCOSE NEGATIVE (NEGATIVE); KETONE LARGE mg/dL (NEGATIVE); MUCUS >1+ /lpf (NONE SEEN); NITRITE NEGATIVE (NEGATIVE); PROTEIN NEGATIVE (NEGATIVE); UROBILINOGEN NORMAL (NORMAL)
[~2017-06-14 06:23] MED LIST changes: +ACETAMINOPHEN500 M1 PO
[2017-06-14 09:58] VITALS: BP 124/72; BMI 20.9
[2017-06-14] MEDS ORDERED: LEVAQUIN500 MG PO (10:08)
--- NOTE | 2017-06-14 20:45 | NUR ---
191 IV DC WITH CATHER TIP INTACT DRAIN CARE TEACHING DONE WITH PT AND FAMILY MEMBER
--- NOTE | 2017-06-15 10:17 | OP ---
PATIENT NAME: CATA GAMBINO MEDICAL RECORD: [id number] :49 LOCATION:[facility] ADMISSION DATE: SURGEON: ADRIEN MANSFIELD MD DATE OF OPERATION: 06/14/2017 PREOPERATIVE DIAGNOSIS: Postoperative subcutaneous fluid collection. POSTOPERATIVE DIAGNOSIS: Postoperative subcutaneous abscess. PROCEDURE: Incision and drainage of subcutaneous abscess with placement of drain. SURGEON: Adrien Mansfield MD CIRCULAR SAWYER STONE: None. BLOOD LOSS: Minimal. ANESTHESIA: General. COMPLICATIONS: None. It is surprising that the patient had an abscess. There was no overlying erythema. No excess heat production. The area was not pointing. There was a copious amount of beige pus. I noted no antral contents. No feculent material. OPERATIVE COURSE: The patient was conveyed to the operating room electively on 06/14/2017. General anesthesia was induced by anesthesia staff. The abdomen was sterilely prepped and draped. A skin incision was accomplished overlying the right lower quadrant subcutaneous fluid collection. This was done after ultrasound evaluation of the fluid collection. Purulence was identified. I broke up loculations with a hemostat. Cultures were obtained. I irrigated with hydrogen peroxide. A counterincision was accomplished medially and inferiorly. I passed a pair of hemostats through the inferior incision and brought them out through the superior incision. I grasped a flat Rene drain and shortened it and withdrew it into the abscess cavity. The drain was sutured to the skin with a 4-0 nylon. The original I&D site was closed with a single horizontal mattress 4-0 Vicryl suture. A sterile dressing was applied. The patient was then extubated and conveyed to post-anesthesia care unit where she was in stable condition. She is going to be dismissed home on an antibiotic as well as an analgesic. I will see her in the office in 2 weeks for drain removal. TRANSINT:[id number] Voice Confirmation ID: [id number] DOCUMENT ID: [id number] ADRIEN MANSFIELD MD at 1017 CC: BRIGIDA HENRIQUEZ MD and BRIAN WALDRON DO [id number] DICTATION DATE: 06/14/171812 SALES ADMINISTRATION SPECIALIST: 06/14/17 225[address] [facility] 06/14/17 [place] [address]
== END 2017-06-14 19:45 | disposition home or self-care (01) ==
LOC: D.PAN 06:23 → D.OPS 11:30 → D.PAN 11:30
PROVIDERS: Anesthesiology
DX: L76.34 Postprocedural seroma of skin and subcutaneous tissue following other procedure (principal); Z01.812 Encounter for preprocedural laboratory examination; K44.9 Diaphragmatic hernia without obstruction or gangrene; K21.9 Gastro-esophageal reflux disease without esophagitis

== ENCOUNTER 2017-06-29 10:01 | Day surgery (SDC) | payer MEDICARE, BC ==
[~2017-06-29 10:01] MED LIST changes: +LEVAQUIN500 MG PO
[2017-06-29 10:44] VITALS: BP 125/76; BMI 20.5
[2017-06-29 12:25] LABS: HEMATOCRIT 38.3 % (36.0-48.0); HEMOGLOBIN 12.3 g/dL (12-16); MCH 30.1 pg (26.0-34.0); MCHC 32.1 g/dL (31.0-37.0); MCV 93.6 fL (80.0-100.0); MEAN PLATELET VOLUME 10.6 fL (7.4-10.4); RBC 4.09 10x6/uL (4.00-5.40); RDW 14.5 % (11.5-14.5); WBC 8.3 10x3/uL (4.8-10.8)
--- NOTE | 2017-06-29 15:43 | NUR ---
1420--DEDRICK WITH CT IN ROOM, LEFT PT WITH ORAL CONTRAST TO DRINK BEFORE CT. HGRAHOLLAND RN
--- NOTE | 2017-06-29 16:40 | NUR ---
1640--REPORT GIVEN TO JAG NAVARRO RN. LEANNA RN
--- NOTE | 2017-06-29 17:08 | NUR ---
1650-ASSISTED TO DRESS IN PERSONAL CLOTHING, IV SALINE LOCKED. PT. TAKEN TO CT VIA WHEELCHAIR.
--- NOTE | 2017-06-29 17:33 | NUR ---
1715-RETURN FROM CT, SALINE LOCK DISCONTINUED. COMPLAINS OF ABDOMINAL PAIN-MEDICATED WITH ONE 5MG NORCO. DISCHARGE INSTRUCTIONS GIVEN. ESCORTED VIA WHEELCHAIR TO PERSONAL CAR, LEFT WITH SISTER DRIVING.
--- NOTE | 2017-07-01 10:04 | HP ---
PATIENT: CATA GAMBINO MEDICAL RECORD: [id number] ACCOUNT: [id number] LOCATION:[facility] : 49 ADMISSION DATE: 06/29/17 HISTORY AND PHYSICAL EXAMINATION CHIEF COMPLAINT: Abscess. HISTORY: The patient has recurrent subcutaneous abscess of the right lower quadrant. She is here for debridement, marsupialization, and packing of the wound. I am at loss to explain why she is having these recurrent infections. She has completed rounds of antibiotics. She has had a drain placed. She has undergone HALS colon resection sometime ago and really should be healed up. SOCIAL HISTORY: She states she is no longer smoking. PAST MEDICAL AND SURGICAL HISTORY: COPD, history of HALS colectomy, history of vertebroplasty, osteoporosis, arthritis, gastroesophageal reflux, and hiatal hernia. REVIEW OF SYSTEMS: Negative for CVA or seizures. Negative for diabetes or thyroid problems. HOME MEDICINES: She states she is only taking Tylenol. ALLERGIES: FENTANYL, SULFA, AND OMNICEF WELL SPIRIVA. PHYSICAL EXAMINATION: GENERAL: The patient appears acutely ill. Also appears chronically ill. VITAL SIGNS: Reviewed. HEAD: External ears appear normal. EYES: Extraocular movements are intact. NECK: Trachea is midline. CHEST: No intercostal retractions. PULMONARY: Nonlabored. No stridor. ABDOMEN: Right lower quadrant abscess, which is draining. PSYCHIATRIC: Anxious affect. NEUROLOGIC: Nonfocal. No lethargy. The patient answers questions appropriately. IMPRESSION: Recurrent subcutaneous abscess, right lower quadrant. PLAN: Excisional debridement in the operating room. TRANSINT:[id number] Voice Confirmation ID: [id number] DOCUMENT ID: [id number] HISTORY AND PHYSICAL [id number] CATA GAMBINO ROBERT MD at 1004 CC: BRIAN WALDRON DO [id number] DICTATION DATE: 06/29/17 1431 TRAFFIC INVESTIGATOR: 06/29/[address] [facility] 06/29/17 [place] [id number]
--- NOTE | 2017-07-12 09:40 | OP ---
PATIENT NAME: CATA GAMBINO MEDICAL RECORD: [id number] :49 LOCATION:D.[facility] ADMISSION DATE: SURGEON: ADRIEN MANSFIELD MD DATE OF OPERATION: 06/29/2017 PREOPERATIVE DIAGNOSIS: Recurrent subcutaneous postoperative abscess. POSTOPERATIVE DIAGNOSIS: Recurrent subcutaneous postoperative abscess. PROCEDURE: Excisional debridement of postoperative recurrent subcutaneous abscess with marsupialization and packing of the wound. Dimensions of the debridement, including margins, measured 3.0 x 2.8 cm included skin and subcutaneous tissue as well as a portion of the abscess cavity. OPERATIVE COURSE: The patient was conveyed to the operating room electively on 06/29/2017. General anesthesia was induced by the anesthesia staff. The abdomen was sterilely prepped and draped. A roughly circular incision was accomplished over a swollen area in the right lower quadrant. I excised skin and subcutaneous tissue as well as a portion of the abscess cavity. Purulence was identified. Cultures were obtained. I irrigated with sterile normal saline and then hydrogen peroxide. I then marsupialized the wound with a running locking 3-0 Vicryl Rapide suture. I then packed the wound with 1-inch iodoform gauze. A sterile dressing was then applied. The patient was then extubated and conveyed to the post-anesthesia care unit where she was in stable condition. We are going to obtain a CT scan to ensure that there is not a foreign body that is a nidus for this recurrent infection. She will be seen in my office on Tuesday for packing removal. TRANSINT:[id number] Voice Confirmation ID: [id number] DOCUMENT ID: [id number] ADRIEN MANSFIELD MD at 0940 CC: [id number] DICTATION DATE: 07/04/17 1051 WAREHOUSE PRICING AND INVENTORY CLERK: 07/04/17 1127 [facility] 06/29/17 [place] [address]
== END 2017-06-29 17:30 | disposition home or self-care (01) ==
LOC: D.OPS 10:01
PROVIDERS: Anesthesiology
DX: L02.211 Cutaneous abscess of abdominal wall (principal); L76.82 Other postprocedural complications of skin and subcutaneous tissue; F17.200 Nicotine dependence, unspecified, uncomplicated; J44.9 Chronic obstructive pulmonary disease, unspecified; K44.9 Diaphragmatic hernia without obstruction or gangrene; K21.9 Gastro-esophageal reflux disease without esophagitis; Z01.812 Encounter for preprocedural laboratory examination

== ENCOUNTER 2017-08-14 17:08 | Emergency (ER) | payer MEDICARE, BC ==
[2017-08-14 18:20] LABS: BASOPHILS 0.3 % (0-2); EOSINOPHILS 0.6 % (0-7); HEMATOCRIT 41.7 % (36.0-48.0); HEMOGLOBIN 13.5 g/dL (12-16); IMMATURE GRANULOCYTES 0.2 % (0-5); LYMPHOCYTES 22.4 % (15-50); MCH 30.1 pg (26.0-34.0); MCHC 32.4 g/dL (31.0-37.0); MCV 93.1 fL (80.0-100.0); MEAN PLATELET VOLUME 10.5 fL (7.4-10.4); MONOCYTES 8.1 % (2-11); NEUTROPHILS 68.4 % (40-80); RBC 4.48 10x6/uL (4.00-5.40); RDW 15.1 % (11.5-14.5); WBC 6.5 10x3/uL (4.8-10.8)
[2017-08-14 18:25] LABS: PLATELET COUNT 205 10x3/uL (130-400)
[2017-08-14 18:26] LABS: APPEARANCE HAZY (CLEAR); BILIRUBIN NEGATIVE (NEGATIVE); COLOR YELLOW (YELLOW); GLUCOSE NEGATIVE (NEGATIVE); KETONE NEGATIVE (NEGATIVE); NITRITE NEGATIVE (NEGATIVE); PROTEIN NEGATIVE (NEGATIVE); UROBILINOGEN NORMAL (NORMAL)
[2017-08-14 18:29] LABS: AMORPHOUS SEDIMENT >1+ /lpf (NONE SEEN); BACTERIA MANY /hpf (NONE SEEN); EPITHELIAL CELLS 0-5 /hpf (0-5); GRANULAR CAST OCC /lpf (NONE SEEN); HYALINE CAST OCC /lpf (NONE SEEN); RED CELLS - URINE 0-5 /hpf (0-5)
[2017-08-14 18:58] LABS: ALBUMIN 3.8 g/dL (3.4-5.0); ANION GAP 13.3 mmol/L (8-16); BILIRUBIN - TOTAL 0.2 mg/dL (0.2-1.3); CALCIUM 10.5 mg/dL (8.5-10.1); CARBON DIOXIDE 29.6 mmol/L (21.0-32.0); CREATININE - SERUM 0.9 mg/dL (0.6-1.3); POTASSIUM - SERUM 3.9 mmol/L (3.5-5.1); PROTEIN - SERUM 7.4 g/dL (6.4-8.2)
== END 2017-08-14 19:42 | disposition home or self-care (01) ==
LOC: D.ER 17:08
PROVIDERS: Nurse Practitioner Family
DX: N39.0 Urinary tract infection, site not specified (principal); L03.311 Cellulitis of abdominal wall; F17.200 Nicotine dependence, unspecified, uncomplicated

== ENCOUNTER 2018-07-13 12:13 | Outpatient (CLI) | payer MEDICARE, BC ==
[~2018-07-13] VITALS: Ht 147.3 cm; Wt 48.2 kg
[2018-07-13 12:50] VITALS: BP 153/92; Ht 147.3 cm; Wt 48.2 kg
[2018-07-13 13:25] LABS: CALC OSMOLALITY 274 mosm/kg (275-300); CARBON DIOXIDE 27.2 mmol/L (21.0-32.0); CHLORIDE - SERUM 103 mmol/L (98-107); CREATININE - SERUM 0.8 mg/dL (0.6-1.3); GLUCOSE 79 mg/dL (74-106); POTASSIUM - SERUM 3.9 mmol/L (3.5-5.1); SODIUM 138 mmol/L (136-145); UREA NITROGEN 12 mg/dL (7-18); eGFR NON AFRICAN AMERICAN 75 mL/min (90-120)
== END 2018-07-13 15:00 | disposition home or self-care (01) ==
LOC: D.OPS 12:13
PROVIDERS: Family Medicine
DX: M81.0 Age-related osteoporosis without current pathological fracture (principal); Z01.812 Encounter for preprocedural laboratory examination

== ENCOUNTER → 2019-10-25 12:15 | Outpatient (CLI) | payer MEDICARE, BC ==
[~2019-10-25] VITALS: Ht 147.3 cm; Wt 48.2 kg
[2019-10-25 13:59] VITALS: Ht 147.3 cm; Wt 48.2 kg
== END | disposition home or self-care (01) ==
LOC: D.OPS 12:15
PROVIDERS: ATTEND Family Medicine
DX: M81.0 Age-related osteoporosis without current pathological fracture (principal)

== ENCOUNTER → 2020-05-02 10:04 | Outpatient (CLI) | payer MEDICARE, BC ==
[2019-10-25 13:59] VITALS: BMI 22.2
== END | disposition home or self-care (01) ==
LOC: D.RAD 10:04
PROVIDERS: ATTEND Family Medicine
DX: R10.9 Unspecified abdominal pain (principal)

== ENCOUNTER → 2020-10-29 12:34 | Outpatient (CLI) | payer MEDICARE, BC ==
[~2020-10-29] VITALS: Ht 147.3 cm; Wt 47.7 kg
--- NOTE | 2020-10-29 14:17 | NUR ---
1355-STARTED PERIPHERAL IV TO LEFT FOREARM TIMES ONE ATTEMPT WITH 22G CATHETER. INFUSION INITATED.
[2020-10-29 14:33] VITALS: BP 157/92; Ht 147.3 cm; Wt 47.7 kg
== END | disposition home or self-care (01) ==
LOC: D.OPS 12:34
PROVIDERS: ATTEND Family Medicine
DX: M81.0 Age-related osteoporosis without current pathological fracture (principal)